=== PATIENT | female | born 1970 | race Hispanic/Latino ===

== ENCOUNTER 2019-04-28 22:12 | Observation (INO) | payer OTHER ==
[2019-04-28] MEDS ORDERED: Aspirin 325 MG TAB ONE (22:35)
[2019-04-28] MEDS ORDERED: Nitroglycerin 0.4 MG TAB (25 Tab Bottle) ONE (22:37)
[2019-04-28 22:51] LABS: #Basophils 0.1 thou/uL (0.0-0.2); #Eosinphils 0.3 thou/uL (0.0-0.7); #Monocytes 0.4 thou/uL (0.11-0.59); #Neutrophils 5.3 thou/uL (1.40-6.50); %Basophils 0.7 % (0.0-1.0); %Eosinophils 2.7 % (0.0-10.0); %Lymphocytes 39.9 % (21.0-51.0); %Monocytes 3.7 % (0.0-10.0); Hemoglobin 13.8 g/dL (12.0-16.0); Mean Corpuscular HGB CONC 35.1 g/dL (32.0-36.0); Mean Corpuscular Hemoglobin 29.6 pg (27.0-31.0); Mean Corpuscular Volume 84.4 fL (78.0-98.0); Mean Platelet Volume 6.7 fL (7.4-10.4); Platelet Count 333 thou/uL (130-400); RBC Distribution Width 12.5 % (11.5-14.5); Red Blood Cell (RBC) Count 4.67 mill/uL (4.20-5.40); White Blood Cell (WBC) Count 10.1 thou/uL (4.8-10.8)
--- NOTE | 2019-04-28 22:58 | RAD ---
EXAM: Single view of the chest HISTORY: Chest pain COMPARISON: None FINDINGS: Single view of the chest shows a normal sized cardiomediastinal silhouette. There is no willow dence of consolidation, mass, or pleural effusion. The bones are unremarkable. IMPRESSION: No evidence of acute cardiopulmonary disease
[2019-04-28 23:06] LABS: ALT (SGPT) 35 U/L (8-55); AST (SGOT) 22 U/L (5-34); Albumin 4.3 g/dL (3.5-5.0); Alkaline Phosphatase 65 U/L (40-150); Anion Gap 14 mmol/L (10-20); BUN (Urea Nitrogen) 14 mg/dL (7.0-18.7); Bilirubin, Total 0.6 mg/dL (0.2-1.2); Calc. Creatinine Clearance 0 mL/min (70-130); Calcium 10.3 mg/dL (7.8-10.44); Carbon Dioxide 25 mmol/L (22-29); Chloride 106 mmol/L (98-107); Estimated GFR-MDRD 75; Globulin 3.2 g/dL (2.4-3.5); Glucose 125 mg/dL (70-105); Lipase 35 U/L (8-78); Potassium 3.8 mmol/L (3.5-5.1); Protein, Total 7.5 g/dL (6.0-8.3); Sodium 141 mmol/L (136-145)
[2019-04-28] MEDS ORDERED: Nitroglycerin 2% Ointment 1 INCH/1 GM Packet ONE (23:30)
[2019-04-29 01:48] VITALS: BMI 31.9
[2019-04-29] MEDS ORDERED: Acetaminophen 500 MG TAB PO PRN (02:52)
[2019-04-29] MEDS ORDERED: Ondansetron PF 4 MG/2 ML Vial IVP PRN (02:52)
[2019-04-29] MEDS ORDERED: Ondansetron ODT 4 MG TAB PO PRN (02:52)
[2019-04-29] MEDS ORDERED: Nitroglycerin 0.4 MG TAB (25 Tab Bottle) PO PRN (02:52)
--- NOTE | 2019-04-29 02:52 | PDOC.FPRHP ---
- History of Present Illness Chief Complaint: Chest Pain History of Present Illness: This is a 48 yo female with a pmh of HTN, Hypothyroidism, HLD, prediabetes who presents from [facility] with a cc of Chest pain. She states she has had the chest pain for months now but reports the pain has changed in the last 3 weeks. She states it is gradually worsening and at times she feels like passing out, diaphoretic, and occasionally nauseated. She states the pain is sub sternal with horizontal and vertical radiation at times. She state at times the pain would rise up from her epigastric region and she would have a foul taste in her mouth and foamy sputum. She denies doing anything that makes the pain better or worse. In addition, she reports a rash on her neck that appears sporadically. The rash is itchy and erythematous. ED Course: Nitro, aspirin, 1L NS - Allergies/Adverse Reactions Allergies Allergy/AdvReac Type Severity Reaction Status Date / Time No Known Allergies Allergy Unverified 04/29/19 02:11 - Home Medications Medication Instructions Recorded Confirmed Type Ergocalciferol [Drisdol] 50,000 units PO ASDIR 04/29/19 04/29/19 History Icosapent Ethyl [Vascepa] 1 gm PO DAILY 04/29/19 04/29/19 History Levothyroxine Sodium [Synthroid] 250 mcg PO DAILY 04/29/19 04/29/19 History Omeprazole 40 mg PO DAILY 04/29/19 04/29/19 History Simvastatin [Zocor] 20 mg PO HS 04/29/19 04/29/19 History metFORMIN HCl [Metformin HCl ER] 750 mg PO DAILY 04/29/19 04/29/19 History - History PMHx: HTN, HLD, hypothyroidism, prediabetes PSHx: Cholecystectomy, partial hysterectomy FHx: Mother had 4 vessel bipass at the age of 50 Social: Denies MARCELINO - Review of Systems General: reports: fatigue (occasional). denies: fever/chills, weight/appetite/ sleep changes, night sweats Eyes: denies: eye pain, vision changes ENT: denies: nasal congestion Respiratory: reports: shortness of breath. denies: cough Cardiovascular: reports: chest pain. denies: palpitation, edema Gastrointestinal: reports: nausea. denies: vomiting, diarrhea, constipation, abdominal pain Genitourinary: denies: incontinence Skin: reports: rashes (See HPI). denies: lesions Musculoskeletal: denies: pain, tenderness Neurological: denies: numbness, syncope Psychological: denies: anxiety, depression - Vital signs BP: 111/63 HR: 72 RR: 16 Tmax: 98.1 Pox: 95% on ra Wt: 84 kg - Physical Exam Constitutional: NAD, awake, alert and oriented, well developed HEENT: normocephalic and atraumatic, PERRLA, EOMI, grossly normal vision, grossly normal hearing, MMM Neck: FROM, trachea midline, no thyromegaly, no bruits Chest: no lesions, other (Tender to palpation) Heart: RRR, normal S1/S2, no murmurs/rubs/gallops, pulses present Lungs: CTAB, no respiratory distress, good air movement, no wheezing Abdomen: soft, non-tender, bowel sounds present Musculoskeletal: normal tone, ROM grossly normal Neurological: no focal deficit, CN II-XII intact Skin: capillary refill <2 seconds Heme/Lymphatic: no unusual bruising or bleeding Psychiatric: normal mood and affect FMR H&P: Results - Labs Result Diagrams: 04/28/19 22:40 04/28/19 22:40 Lab results: WBC 10.1 thou/uL (4.8-10.8) 04/28/19 22:40 Hgb 13.8 g/dL (12.0-16.0) 04/28/19 22:40 Hct 39.4 % (36.0-47.0) 04/28/19 22:40 MCV 84.4 fL (78.0-98.0) 04/28/19 22:40 Plt Count 333 thou/uL (130-400) 04/28/19 22:40 Neutrophils % 53.0 % (42.0-75.0) 04/28/19 22:40 Sodium 141 mmol/L (136-145) 04/28/19 22:40 Potassium 3.8 mmol/L (3.5-5.1) 04/28/19 22:40 Chloride 106 mmol/L (98-107) 04/28/19 22:40 Carbon Dioxide 25 mmol/L (22-29) 04/28/19 22:40 BUN 14 mg/dL (7.0-18.7) 04/28/19 22:40 Creatinine 0.81 mg/dL (0.6-1.1) 04/28/19 22:40 Glucose 125 mg/dL (70-105) H 04/28/19 22:40 Calcium 10.3 mg/dL (7.8-10.44) 04/28/19 22:40 Total Bilirubin 0.6 mg/dL (0.2-1.2) 04/28/19 22:40 AST 22 U/L (5-34) 04/28/19 22:40 ALT 35 U/L (8-55) 04/28/19 22:40 Alkaline Phosphatase 65 U/L (40-150) 04/28/19 22:40 B-Natriuretic Peptide Less than 10.0 pg/mL (0-100) 04/28/19 22:40 Serum Total Protein 7.5 g/dL (6.0-8.3) 04/28/19 22:40 Albumin 4.3 g/dL (3.5-5.0) 04/28/19 22:40 Lipase 35 U/L (8-78) 04/28/19 22:40 FMR H&P: A/P - Problem List (1) Chest pain Current Visit: Yes Status: Acute Code(s): R07.9 - CHEST PAIN, UNSPECIFIED (2) Hypothyroidism Current Visit: Yes Status: Acute Code(s): E03.9 - HYPOTHYROIDISM, UNSPECIFIED (3) Prediabetes Current Visit: Yes Status: Acute Code(s): R73.03 - PREDIABETES (4) HLD (hyperlipidemia) Current Visit: Yes Status: Acute Code(s): E78.5 - HYPERLIPIDEMIA, UNSPECIFIED (5) HTN (hypertension) Current Visit: Yes Status: Acute Code(s): I10 - ESSENTIAL (PRIMARY) HYPERTENSION - Plan This is a 48 yo female with a pmh of HTN, HLD, Hypothyroidism Atypical chest pain, ACS r/o vs costochondritis -Admit to tele obs -Heart score of 3 -EKG shows no ST elevation or depression -Trop negative x 1, trend x 3 -Stress test in AM -TTE pending this morning -GI cocktail for therapeutic and diagnostic effect -Reproducible pain -Pending SUZETTE for autoimmune processes -Pending TSH as pt is on 350mcg of levothyroxine per day Hypothyroidism -No nodules felt -Pending TSH Prediabetes -Continue home meds HLD -Continue home med GERD -Continue home med Code: Full Prophylaxis: SCDs Family: at bedside Fluids: NS 120ml/hr Diet: NPO Disposition: DC in 1-2 days PCP: Dr. Higginbotham FMR H&P: Upper Level - Plan Date/Time: 04/29/19 0251 IRussell MD, have evaluated this patient and agree with findings/plan as outlined by consultants intern resident. Pertinent changes/additions are listed here. 48 y/o F w/ PMHx of Pre-DM, HLD, Hypothyroidism and FHx significant for mother who from a heart attack at 50 y/o presents for eval of intermittent substernal chest pain that has been going on for years, but has worsened over the past week or so. Described as a sharp/pressure "like when you have to burp but it wont come out". Associated w/ intermittent diaphoresis and a red rash that she gets on her neck. No change w/ exertion/position. Reports some mild improvement in sxs w/ SL nitro give at the outside ER. Reports she has been told that her sxs are reflux by her PCP and was recently started on nexium which she states has helped very little. Vitals per consultants intern note EKG - NAD, non-specific ST-changes. Trop - < 0.01 PE: Gen: Obese, NAD Card: RRR, no murmur. CP reproducible w/ palpation Pulm: CTA-b/l Derm: No noted rashes 48 y/o F w/: 1. Atypical Chest Pain (HEART 4) - Presentation unusual for ACS, but patient does have risk factors and signficant family hx of cardiac disease - Will keep her NPO and plan for cardiac stress in the AM - Check A1c, TSH, and FLP on her - Sxs are somewhat consistent w/ reflux, will try a GI cocktail as patient reports she is still experiencing discomfort to see if this improves her sxs at all - ASA and statin 2. Other chronic medical problems per consultants intern note Addendum - Attending - Attending Attestation Date/Time: 04/29/19 0808 I personally evaluated the patient and discussed the management with Dr. Diallo /Gilda. I agree with the History, Examination, Assessment and Plan documented above with any addition or exceptions noted below. Patient here with atypical chest pain over the last few days and associated LE swelling. Reports intermittent chest pain, not different on exertion. Exam is benign. Labs show negative CE, mildly elevated T4 and suppressed TSH. Patient will be obs for stress testing and TTE. Consider decreasing dosage of levothyroxine. Anticipate discharge today if normal results.
[2019-04-29 03:26] LABS: Troponin I Less than 0.010 ng/mL (< 0.028)
[2019-04-29] MEDS ORDERED: Lidocaine 2% Viscous Solution 10 ML, Aluminum & Magnesium Hydroxide 30 ML SSW SCH (03:30)
[2019-04-29] MEDS: Sodium Chloride 0.9% 1,000 ML IV SCH ×2 (04:36→04:38)
[2019-04-29] MEDS ORDERED: Levothyroxine Sodium 125 MCG TAB PO SCH (06:00)
[2019-04-29 06:17] LABS: Troponin I Less than 0.010 ng/mL (< 0.028)
[2019-04-29 06:31] LABS: Free T4 (Free Thyroxine) 1.77 ng/dL (0.70-1.48); Thyroid Stimulating Hormone 0.0229 uIU/mL (0.35-4.94)
[2019-04-29 07:35] LABS: Cardiac Risk 3.1 (Less than 4.5)
[2019-04-29] MEDS ORDERED: Aspirin 81 mg Enteric Coated Tablet PO SCH (09:00)
[2019-04-29] MEDS ORDERED: metFORMIN XR 500 MG TAB PO SCH (09:00)
[2019-04-29 13:46] VITALS: BP 111/70; TEMP 97.7
--- NOTE | 2019-04-29 14:09 | NM ---
MYOCARDIAL PERFUSION EVALUATION: CLINICAL HISTORY: Chest pain. RADIOPHARMACEUTICAL: 30 mCi and 10.9 mCi technetium 99m sestamibi IV administered at stress and rest FINDINGS: Evaluation of stress and rest imaging reveals no significant fixed or reversible defects of the left ventricular tucker. Gated imaging reveals wall motion and contractility with calculated LVEF 73%. IMPRESSION: 1. No significant ischemia or scar. 2. Normal left ventricular systolic function. Transcribed Date/Time: 04/29/2019 2:29 PM
[2019-04-29] MEDS ORDERED: Atorvastatin Calcium 10 MG TAB PO SCH (21:00)
[2019-04-30] MEDS ORDERED: Ergocalciferol 1.25 MG(50,000 UNITS) CAP PO SCH (09:00)
--- NOTE | 2019-04-30 23:06 | DIS ---
DATE OF ADMISSION: 04/29/2019 DATE OF DISCHARGE: 04/29/2019 RESIDENT: Lisa Fine MD. ADMITTING ATTENDING: Chirag Tyson MD. DISCHARGE ATTENDING: Chirag Tyson MD CONSULT: None. PROCEDURES: 1. Chest x-ray, which showed no evidence of acute cardiopulmonary disease. 2. Nuclear stress test, which showed no significant ischemia or scar with a normal left ventricular systolic function. 3. Echocardiogram which showed an ejection fraction estimated at 50% to 55% with [id number] mitral regurgitation. PRIMARY DIAGNOSES: Atypical chest pain, likely secondary to iatrogenic hyperthyroidism. SECONDARY DIAGNOSES: 1. Hypothyroidism. 2. Prediabetes. 3. Hyperlipidemia. 4. Gastroesophageal reflux disease. DISCHARGE MEDICATIONS: 1. Vascepa 1 g p.o. daily. 2. Drisdol 50,000 units p.o. as directed. 3. Synthroid 200 mcg p.o. daily. 4. Metformin 750 mg p.o. daily. 5. Omeprazole 40 mg p.o. daily. 6. Acetaminophen 1000 mg p.o. every 6 hours p.r.n. 7. Atorvastatin 10 mg p.o. at bedtime. DISCONTINUED MEDICATIONS: 1. Synthroid 250 mcg p.o. daily. 2. Simvastatin 20 mg p.o. at bedtime. HOSPITAL COURSE: The patient is a 48-year-old female with a past medical history significant for hypothyroidism, prediabetes mellitus, and hyperlipidemia , who presented to the emergency department with chief complaint of 3 months of substernal chest pain that reportedly gotten progressively worse over the last 3 weeks with associated diaphoresis. On presentation to the emergency department , the patient's vitals were noted to be within normal limits with a slightly elevated blood pressure of 164/91. The patient's initial workup included a chest x-ray, EKG, and troponin, all of which were noted to be within normal limits. She was given one dose of sublingual nitroglycerin as well as topical nitroglycerin paste, 324 of aspirin, and 1 L of normal saline which gave her some relief. Thus, given her significant risk factors and family history of coronary artery disease, the patient was admitted to rule out ACS with plans to undergo a cardiac stress test the following morning. The following morning, review of her bloodwork obtained following admission revealed that her TSH was markedly decreased at a level of 0.0229 & her T4 level was significantly elevated at 1.77. The patient reported slight improvement of her chest pain overnight and was counseled on the likelihood of her overtreated hypothyroidism to most likely be the source of her chest discomfort. However, she underwent stress testing and had a TTE performed, both of which were within normal limits as described in detail above. Lastly, her Synthroid dose was decreased to 200 mcg daily and the patient was instructed to follow up with her primary care provider , Dr. Giovanni Higginbotham within one week of discharge and to have a repeat TSH level within one month of discharge. The patient was cleared for discharge after having a normal cardiac stress test, ruling out any cardiac etiology. DISPOSITION: Stable. DISCHARGE INSTRUCTIONS: 1. Location: Home. 2. Diet: Heart healthy diet, diabetic diet. 3. Activity: As tolerated. No restrictions. 4. Followup: The patient was discharged to follow up with her primary care provider, Dr. Giovanni Higginbotham within one week of discharge and instructed to get a repeat TSH within one month of discharge. Job ID: [id number]
[2019-05-01 12:19] LABS: ANA Symphony (Qualitative) Negative (Negative); ANA Symphony (Quantitative) 0.1 Ratio (< 0.7 Negative); dsDNA IgG Antibody Less than 0.5 IU/mL (<10 Negative)
== END 2019-04-29 16:26 | disposition home or self-care (01) ==
LOC: SCSER 22:12 → 2SW 04-29 01:17
PROVIDERS: ADMIT Student in an Organized Health Care Education/Training Program; ATTEND Student in an Organized Health Care Education/Training Program
DX: R07.2 Precordial pain (principal); I10 Essential (primary) hypertension; E03.2 Hypothyroidism due to medicaments and other exogenous substances; E78.5 Hyperlipidemia, unspecified; R73.03 Prediabetes; K21.9 Gastro-esophageal reflux disease without esophagitis; E66.9 Obesity, unspecified; Z68.31 Body mass index [BMI] 31.0-31.9, adult; Z79.84 Long term (current) use of oral hypoglycemic drugs; Z79.899 Other long term (current) drug therapy
CPT/HCPCS: 36415; 36416; 71045; 78452; 80053; 80061; 83036; 83690; 83880; 84439; 84443; 84481; 84484; 85025; 85652; 86038; 86225; 93005; 93017; 93306; 94760; 96360; 96361; A9500; G0378

== ENCOUNTER 2020-03-05 16:22 | Outpatient (CLI) | payer OTHER ==
--- NOTE | 2020-03-05 16:49 | RAD ---
Exam: 2 views lumbar spine HISTORY: Low back pain rated in both buttocks to the feet. COMPARISON: none FINDINGS: 5 lumbar type vertebra. Vertebral body heights are maintained. Disc space heights are prese rved. No spondylolisthesis or spondylolysis. Straightening of lumbar lordosis is presumed be positional Visualized sacrum and bony pelvis do not demonstrate any acute abnormality IMPRESSION: No significant degenerative change.
== END 2020-03-05 16:23 | disposition home or self-care (01) ==
LOC: SCSRAD 16:22
PROVIDERS: ATTEND Family Medicine
DX: M54.5 Low back pain (principal)
CPT/HCPCS: 72100